=== PATIENT | male | born 1990 | race African-American/Black ===

== ENCOUNTER 2018-07-31 05:17 | Emergency (ER) | payer OTHER ==
[~2018-07-31] VITALS: Ht 180.3 cm; Wt 63.5 kg
[~2018-07-31 05:17] MED LIST: ACETAMINOPHEN-1 EAC1 PO; ACTICIN 5% CREA60 G1 TOP; ACYCLOVIR 200200 MG PO; AMOXICILLIN500 M1 PO; ANTIPYRINE-BENZ10 ML OT; NOHOMEMEDICATIONS; NORCO 5-325 TA1 EACH PO; PHENADOZ25 MG RC; PHENERGAN 25 MG25 M1 PO; PREDNISONE 10 M10 MG PO; VISTARIL 25 MG25 M1 PO; ZOFRAN ODT4 MG PO
[2018-07-31 05:20] VITALS: BP 112/77
[2018-07-31] MEDS ORDERED: ULTRAM 50MG TAB50 MG PO (05:31)
[2018-07-31] MEDS ORDERED: AMOXICILLIN 50500 MG PO (05:31)
== END 2018-07-31 05:41 | disposition home or self-care (01) ==
LOC: M.ERS 05:17
DX: K02.9 Dental caries, unspecified (principal)